=== PATIENT | female | born 1995 | race Two or more races ===

== ENCOUNTER → 2023-09-02 | Outpatient (CLI) | payer MEDICAID | END | disposition home or self-care (01) | LOC: XYW 07:51 | PROVIDERS: ATTEND Student in an Organized Health Care Education/Training Program | DX: I51.89 Other ill-defined heart diseases (principal); R07.9 Chest pain, unspecified; I51.7 Cardiomegaly | CPT/HCPCS: 93306 ==

== ENCOUNTER → 2023-09-05 | Outpatient (CLI) | payer MEDICAID ==
[~2023-09-05] VITALS: Ht 160 cm; Wt 99.8 kg
[2023-09-05] MEDS: ADENOSINE 84 MG in GIVE UN-DILUTED 0 ML IV ONE (11:03)
== END | disposition home or self-care (01) ==
LOC: XYW 09:17 → EDUNIT# 09:30
PROVIDERS: ATTEND Student in an Organized Health Care Education/Training Program
DX: R07.9 Chest pain, unspecified (principal)
CPT/HCPCS: 78452; 93017; A9500; J0153